=== PATIENT | male | born 1945 | race Caucasian/White ===

== ENCOUNTER 2025-04-23 23:05 | Inpatient (IN) | payer MEDICARE, OTHER ==
[~2025-04-23] VITALS: Ht 170.2 cm; Wt 75.7 kg
[2025-04-24] MEDS ORDERED: IOHEXOL-300 100 ML VIAL IV ONE (00:15)
[2025-04-24] MEDS ORDERED: CT SWABBABLE VALVE TRANS SET 1 EA INFUS.SET MC ONE (00:15)
[2025-04-24] MEDS ORDERED: IV NS 0.9% 250 ML IV ONE (00:15)
[2025-04-24] MEDS: IV NS 0.9% 1,000 ML BAG IV ONE (00:16)
[2025-04-24] MEDS: METOCLOPRAMIDE HCL 10 MG/2 ML VIAL IV ONE (00:16)
[2025-04-24] MEDS: ACETAMINOPHEN ES 500 MG TABLET PO ONE (00:16)
[2025-04-24] MEDS ORDERED: ASPIRIN 325 MG TABLET ONE (00:27)
[2025-04-24 00:28] LABS: PLATELET COUNT (AUTO) 280 K/uL (150-450); RED BLOOD CELL COUNT(AUTO) 3.89 MIL/uL (4.5-6.0); RED CELL DISTRIBUTION WIDTH 13.8 % (11.5-15.0); WHITE BLOOD COUNT (AUTO) 8.6 K/uL (4.3-11.0)
[2025-04-24] MEDS: ASPIRIN 325 MG TABLET PO ONE (00:28)
[2025-04-24 00:47] LABS: CALCIUM, SERUM 8.7 mg/dL (8.5-10.1); CREATININE 1.3 mg/dL (0.6-1.3); SODIUM SERUM 138 mmol/L (136-145); UREA NITROGEN, BLOOD 33 mg/dL (7-18)
[2025-04-24 00:50] LABS: ASPARTATE AMINOTRANSFERASE 14 U/L (15-37); TOTAL PROTEIN, SERUM 7.9 g/dL (6.4-8.2)
[2025-04-24 01:25] LABS: PHOSPHORUS 3.4 mg/dL (2.5-4.9)
[2025-04-24] MEDS ORDERED: MAGNESIUM HYDROXIDE 30 ML UDC PO PRN (01:30)
[2025-04-24] MEDS ORDERED: Z GUARD REMEDY 4 OZ OINT TP PRN (01:30)
[2025-04-24] MEDS ORDERED: ONDANSETRON HCL/PF 4 MG/2 ML VIAL IVP PRN (01:30)
[2025-04-24] MEDS ORDERED: MAG HYDROX/AL HYDROX/SIMETH 30 ML UDC PO PRN (01:30)
[2025-04-24 02:30] VITALS: BP 116/66; TEMP 97.9; O2SAT 98
[2025-04-24 05:06] VITALS: BP 124/78; TEMP 97.8; O2SAT 98
[2025-04-24] MEDS: PANTOPRAZOLE 40 MG TABLET.DR PO SCH (07:30)
[2025-04-24 08:20] VITALS: BP 118/62; TEMP 97.7; O2SAT 100
[2025-04-24] MEDS: ASPIRIN 81 MG TAB.CHEW PO SCH (09:00)
[2025-04-24 11:00] VITALS: BP 130/72; TEMP 98.1; O2SAT 98
[2025-04-24] MEDS: HYDROCODONE/APAP 5/325MG TABLET PO PRN (11:38)
[2025-04-24 15:00] VITALS: BP 140/85; TEMP 97.7; O2SAT 95
[2025-04-24] MEDS: ACETAMINOPHEN 325 MG TABLET PO PRN (15:23)
[2025-04-24 20:00] VITALS: BP 128/80; TEMP 97.7; O2SAT 97
[2025-04-24] MEDS: TEMAZEPAM 15 MG CAPSULE PO PRN (23:04)
[2025-04-25] VITALS: BP 113/64; TEMP 98.1; O2SAT 97
[2025-04-25 04:00] VITALS: BP 128/80; TEMP 97.8; O2SAT 95
[2025-04-25 04:56] VITALS: BP 128/100; TEMP 97.8; O2SAT 98
[2025-04-25 06:45] LABS: PLATELET COUNT (AUTO) 294 K/uL (150-450); RED BLOOD CELL COUNT(AUTO) 4.20 MIL/uL (4.5-6.0); RED CELL DISTRIBUTION WIDTH 13.0 % (11.5-15.0); WHITE BLOOD COUNT (AUTO) 8.6 K/uL (4.3-11.0)
[2025-04-25 07:08] LABS: CALCIUM, SERUM 9.0 mg/dL (8.5-10.1); CREATININE 1.2 mg/dL (0.6-1.3); PHOSPHORUS 2.8 mg/dL (2.5-4.9); SODIUM SERUM 142.0 mmol/L (136-145); UREA NITROGEN, BLOOD 22.0 mg/dL (7-18)
[2025-04-25 07:30] VITALS: BP 143/78; TEMP 97.9; O2SAT 100
[2025-04-25 07:51] LABS: LDL 110.0 mg/dL (0-99)
[2025-04-25 16:00] VITALS: BP 125/71; TEMP 97.7; O2SAT 97
[2025-04-26] MEDS ORDERED: PANT40TA49 PO (12:20)
[2025-04-26] MEDS ORDERED: ASPI-1169 PO (12:20)
[2025-04-26 19:05] LABS: LDL 117.0 mg/dL (0-99)
== END 2025-04-26 15:40 | DRG 309 ==
LOC: ER 23:12 → TELE 04-24 01:51
PROVIDERS: ADMIT Nurse Practitioner Acute Care; ATTEND Nurse Practitioner Family
DX: I44.1 Atrioventricular block, second degree (principal); F03.94 Unspecified dementia, unspecified severity, with anxiety; I10 Essential (primary) hypertension; Z86.61 Personal history of infections of the central nervous system; R26.9 Unspecified abnormalities of gait and mobility; F41.9 Anxiety disorder, unspecified; I70.1 Atherosclerosis of renal artery
CPT/HCPCS: 36415; 70450-TC; 71045-TC; 80048-TC; 80053-TC; 80061-TC; 82607-TC; 83690-TC; 83735-TC; 84100-TC; 84443-TC; 84484-TC; 85025-TC; 87081-TC; 93307-TC; 97110-TC; 97116-TC; 97530-TC; G0378; J2765; J7050; Q9967